=== PATIENT | female | born 1990 | race Caucasian/White ===

== ENCOUNTER → 2016-05-14 | Outpatient (CLI) | payer OTHER, MEDICARE ==
[~2016-05-14] MED LIST: CEPH-367 PO; IBUP800T PO; OXYC-302 PO
== END | disposition home or self-care (01) ==
LOC: CFH 16:31
PROVIDERS: ATTEND Nurse Practitioner Gerontology
DX: M40.292 Other kyphosis, cervical region (principal); M47.892 Other spondylosis, cervical region
CPT/HCPCS: 72125